=== PATIENT | male | born 1995 | race Caucasian/White ===

== ENCOUNTER 2019-07-20 21:09 | Emergency (ER) | payer SELFPAY ==
[~2019-07-20] VITALS: Ht 177.8 cm; Wt 84.1 kg
[2019-07-20 21:25] VITALS: BP 137/66; TEMP 97.3
[2019-07-20 23:46] VITALS: PULSE 98
== END 2019-07-20 23:46 | disposition home or self-care (01) ==
LOC: COL.ER 21:09
DX: T23.121A Burn of first degree of single right finger (nail) except thumb, initial encounter (principal); Z23 Encounter for immunization; X19.XXXA Contact with other heat and hot substances, initial encounter; Y92.59 Other trade areas as the place of occurrence of the external cause